=== PATIENT | female | born 1980 | race African-American/Black ===

== ENCOUNTER 2018-06-21 13:03 | Emergency (ER) | payer MEDICAID, OTHER ==
[~2018-06-21] VITALS: Ht 180.3 cm; Wt 120.0 kg
[2018-06-21 15:36] LABS: HEMATOCRIT 38.9 % (36.0-48.0); HEMOGLOBIN 12.4 g/dL (12.0-16.0); MEAN CORPUSCULAR HEMOGLOBIN 22.8 pg (28.0-32.0); MEAN CORPUSCULAR VOLUME 71.9 fL (81.0-99.0); PLATELET 319 x1000/uL (130-400); RED BLOOD CELL COUNT 5.42 mill/uL (4.2-5.4); RED CELL DISTRIBUTION WIDTH 17.6 % (11.6-14.6)
[2018-06-21] MEDS ORDERED: KETOROLAC 60MG/2ML VIAL IM ONE (16:45)
[2018-06-21 17:35] VITALS: BP 137/89
== END 2018-06-21 19:21 | disposition home or self-care (01) ==
LOC: ER 15:18
DX: M54.5 Low back pain (principal); F41.9 Anxiety disorder, unspecified; N92.0 Excessive and frequent menstruation with regular cycle; D64.9 Anemia, unspecified; Z98.890 Other specified postprocedural states
CPT/HCPCS: 36415; 81025; 85027; 96372; 99284; J1885; 99283